=== PATIENT | female | born 1995 | race Two or more races ===

== ENCOUNTER → 2016-12-11 | Outpatient (CLI) | payer OTHER ==
[~2016-12-11] VITALS: Ht 170.2 cm; Wt 90.0 kg
[~2016-12-11] MED LIST: PRENTAB9 PO
[2016-12-11 20:41] VITALS: BP 141/92
[2016-12-11 21:20] VITALS: BP 133/81
[2016-12-11 21:51] VITALS: BP 135/74
[2016-12-11 22:03] LABS: ALT/SGPT 9 U/L (12-78); AST/SGOT 8 U/L (15-37); BILIRUBIN,TOTAL 0.3 MG/DL (0.2-1.0); CREATININE FOR GFR 0.52 MG/DL (0.55-1.02); GLOMERULAR FILTRATION RATE > 60.0 (>60); URIC ACID 3.6 MG/DL (2.6-6.0)
[2016-12-11 22:04] LABS: MEAN CORPUSCULAR HEMOGLOBIN 22.6 pg (27.0-33.0); MEAN CORPUSCULAR HGB CONC 30.3 g/dl (32.0-36.5); MEAN CORPUSCULAR VOLUME 74.8 fl (80.0-96.0); PLATELET COUNT, AUTOMATED 322 k/mm3 (150-450); RED CELL DISTRIBUTION WIDTH 16.4 % (11.5-14.5); WHITE BLOOD COUNT 14.6 K/mm3 (4.0-10.0)
[2016-12-11 22:21] VITALS: BP 122/71
[2016-12-11 22:34] LABS: EOSINOPHILS 2 % (0-5)
[2016-12-11 22:36] LABS: NUCLEATED RED BLOOD CELL 2 % (0-0)
[2016-12-11 22:37] LABS: ANISOCYTOSIS 2+; HYPOCHROMASIA 1+; MICROCYTOSIS 1+; POLYCHROMASIA 2+
== END ==
LOC: M LDO 20:23
PROVIDERS: ATTEND Advanced Practice Midwife
DX: O14.93 Unspecified pre-eclampsia, third trimester (principal); Z3A.32 32 weeks gestation of pregnancy

== ENCOUNTER → 2016-12-13 | Outpatient (CLI) | payer OTHER ==
[2016-12-13 13:50] LABS: BASO % 0.1 % (0.0-1.0); EOS # 0.1 K/mm3 (0.0-0.50); EOS % 0.9 % (0.0-3.0); LARGE UNSTAINED CELL # 0.2 K/mm3 (0.0-0.4); LARGE UNSTAINED CELL % 1.5 % (0.0-4.0); LYMPH # 2.7 K/mm3 (1.5-6.5); MEAN CORPUSCULAR HEMOGLOBIN 22.8 pg (27.0-33.0); MEAN CORPUSCULAR HGB CONC 29.8 g/dl (32.0-36.5); MEAN CORPUSCULAR VOLUME 76.7 fl (80.0-96.0); MONO # 0.8 K/mm3 (0.0-0.8); MONO % 5.3 % (0.0-5.0); NEUTROPHILS # 11.7 K/mm3 (1.8-7.7); NEUTROPHILS % 76.2 % (36.0-66.0); PLATELET COUNT, AUTOMATED 301 k/mm3 (150-450); RED CELL DISTRIBUTION WIDTH 16.7 % (11.5-14.5); WHITE BLOOD COUNT 15.3 K/mm3 (4.0-10.0)
== END ==
LOC: M SMT 08:24
PROVIDERS: ATTEND Advanced Practice Midwife
DX: O13.3 Gestational [pregnancy-induced] hypertension without significant proteinuria, third trimester (principal); Z3A.31 31 weeks gestation of pregnancy

== ENCOUNTER → 2016-12-27 | Outpatient (CLI) | payer OTHER ==
--- NOTE | 2016-12-27 17:03 | REP ---
OB ULTRASOUND: Real-time sonographic evaluation of the gravid uterus is performed and correlated with prior studies. There is a single living intrauterine gestation with estimated gestational age of 34 weeks 0 days. EDC 02/07/2017. Today's measurements indicate appropriate growth. BPD 88 mm = 35 weeks 3 days, at the 71st percentile. HC 322 mm = 36 weeks 3 days, at the 89th percentile. AC 321 mm = 36 weeks 0 days, at the 80th percentile. Femur length 70 mm = 36 weeks 1 days, at the 80th percentile. HC/AC ratio 1.00 within normal range. Estimated weight 2824 grams at the 85th percentile. Cervix is closed and measures 3.1 cm in length. heart rate 150 beats per minute. Amniotic fluid within normal limits. MAVIS is 9.6 within normal range of 8.1-24.8. Biophysical profile score is 6/8 with no points for breathing. SD ratio 2.21 is within normal range of 2.0-.3.0. RI 0.54, slightly below normal range of 0.59-0.75. The cerebellum, four chamber heart, stomach, three-vessel cord, kidneys, and bladder are visualized and are grossly unremarkable. spine is visualized and is grossly unremarkable. position is vertex. Placenta is posterior and fundal and grade 2 with no previa or abruption. There may be a nuchal cord. Signed by Nito Bailey MD 12/27/2016 05:08 P
== END ==
LOC: M LRY 13:52
PROVIDERS: ATTEND Advanced Practice Midwife
DX: O14.03 Mild to moderate pre-eclampsia, third trimester (principal); Z3A.36 36 weeks gestation of pregnancy

== ENCOUNTER 2017-01-01 12:17 | Outpatient (CLI) | payer OTHER ==
[~2017-01-01] VITALS: Ht 167.6 cm; Wt 92.0 kg
== END 2017-01-01 13:10 | disposition home or self-care (01) ==
LOC: M LDO 12:17
PROVIDERS: ATTEND Obstetrics & Gynecology
DX: O26.893 Other specified pregnancy related conditions, third trimester (principal); O14.93 Unspecified pre-eclampsia, third trimester; Z3A.34 34 weeks gestation of pregnancy; O24.419 Gestational diabetes mellitus in pregnancy, unspecified control

== ENCOUNTER 2017-01-04 09:10 | Outpatient (CLI) | payer OTHER ==
[~2017-01-04] VITALS: Ht 167.6 cm; Wt 90.0 kg
[~2017-01-04 09:10] MED LIST changes: -GLYB125TA PO; -IRON1TAB PO
[2017-01-04] MEDS ORDERED: IRON1TAB PO (09:22)
[2017-01-04] MEDS ORDERED: GLYB125TA PO (09:22)
[2017-01-24] MEDS ORDERED: COLA100C3 PO (09:50)
== END 2017-01-04 10:55 | disposition home or self-care (01) ==
LOC: M LDO 09:10
PROVIDERS: ATTEND Obstetrics & Gynecology
DX: O14.03 Mild to moderate pre-eclampsia, third trimester (principal); O24.419 Gestational diabetes mellitus in pregnancy, unspecified control; Z3A.34 34 weeks gestation of pregnancy

== ENCOUNTER → 2017-01-04 | Emergency (ER) | payer OTHER ==
[~2017-01-04] VITALS: Ht 170.2 cm; Wt 95.3 kg
[~2017-01-04] MED LIST changes: +GLYB125TA PO; +IRON1TAB PO
[2017-01-04 08:52] VITALS: BP 158/85
== END | disposition admitted as inpatient to this hospital (09) ==
LOC: M ED 09:14 → M LDO 09:14
DX: O16.4 Unspecified maternal hypertension, complicating childbirth (principal); Z3A.20 20 weeks gestation of pregnancy

== ENCOUNTER → 2017-01-05 | Outpatient (CLI) | payer OTHER ==
[~2017-01-05] MED LIST changes: +GLYB125TA PO; +IRON1TAB PO
--- NOTE | 2017-01-05 13:06 | REP ---
OB ULTRASOUND AND BIOPHYSICAL PROFILE: Real-time sonographic evaluation of the gravid uterus is performed and demonstrates a single living intrauterine gestation with estimated gestational age of 35 weeks 1 day, EDC 02/08/2017. heart rate 163 beats per minute. Amniotic fluid within normal limits, Amniotic fluid index (MAVIS) 12.3 within normal range of 7.8 - 24.9. Biophysical profile score 8 out of 8. S/d ratio 2.53 within normal range. Resistive index 0.60 within normal range. position vertex. Placenta posterior and fundal and grade 2 with no previa or abruption. IMPRESSION: Biophysical profile score 8 out of 8. Signed by Nito Bialey MD 01/05/2017 04:42 P
== END ==
LOC: M LRY 08:49
PROVIDERS: ATTEND Advanced Practice Midwife
DX: O14.03 Mild to moderate pre-eclampsia, third trimester (principal); Z3A.00 Weeks of gestation of pregnancy not specified

== ENCOUNTER 2017-01-11 16:08 | Outpatient (CLI) | payer OTHER ==
[~2017-01-11] VITALS: Ht 170.2 cm; Wt 93.0 kg
[2017-01-11 16:21] VITALS: BP 135/88
[2017-01-11 17:17] VITALS: BP 119/68
[2017-01-11 17:33] VITALS: BP 153/85
[2017-01-11 17:50] VITALS: BP 123/77
[2017-01-11 18:06] VITALS: BP 128/69
[2017-01-11 18:20] VITALS: BP 128/75
[2017-01-11 18:23] LABS: MEAN CORPUSCULAR HEMOGLOBIN 24.9 pg (27.0-33.0); MEAN CORPUSCULAR HGB CONC 31.1 g/dl (32.0-36.5); MEAN CORPUSCULAR VOLUME 79.8 fl (80.0-96.0); RED CELL DISTRIBUTION WIDTH 20.6 % (11.5-14.5); WHITE BLOOD COUNT 9.1 K/mm3 (4.0-10.0)
[2017-01-11 18:39] LABS: ALT/SGPT 12 U/L (12-78); AST/SGOT 15 U/L (15-37); BILIRUBIN,TOTAL 0.4 MG/DL (0.2-1.0); CREATININE FOR GFR 0.48 MG/DL (0.55-1.02); GLOMERULAR FILTRATION RATE > 60.0 (>60); URIC ACID 4.4 MG/DL (2.6-6.0)
== END 2017-01-11 20:13 | disposition home or self-care (01) ==
LOC: M LDO 16:08
PROVIDERS: ATTEND Specialist
DX: O14.93 Unspecified pre-eclampsia, third trimester (principal); Z3A.36 36 weeks gestation of pregnancy; Z79.899 Other long term (current) drug therapy

== ENCOUNTER → 2017-01-12 | Outpatient (REF) | payer OTHER | LOC: M LAB REF 15:10 | PROVIDERS: ATTEND Obstetrics & Gynecology | DX: Z34.83 Encounter for supervision of other normal pregnancy, third trimester (principal) ==

== ENCOUNTER → 2017-01-13 | Outpatient (CLI) | payer OTHER ==
--- NOTE | 2017-01-13 12:16 | REP ---
Obstetric ultrasound for biophysical profile. Amniotic fluid assessment: By the first ultrasound during this gestation the gestational age is 30 6 weeks 3 days. heart rate is hour and 28 beats per minute. There is a single intrauterine gestation in a vertex presentation. The placenta is right lateral. There is no previa or abruptio. The placenta demonstrates grade 2 three maturity. Subjectively amniotic fluid volume is normal. The amniotic fluid index is 9.2 (7.6 - 24.7). Biophysical profile: Breathing 2 Movement 2 Tone 2 Amniotic fluid volume 2 Total / Umbilical artery Doppler assessment: SD ratio 2.44. This is 1.82 - 2.82) Resistive index 0.261. 0.59 - 0.75). Diastolic flow velocity 13.6 cm/sec (normal). Signed by Nito Flowers MD 01/13/2017 12:07 P
== END ==
LOC: M LRY 08:55
PROVIDERS: ATTEND Advanced Practice Midwife
DX: O14.03 Mild to moderate pre-eclampsia, third trimester (principal); Z3A.36 36 weeks gestation of pregnancy

== ENCOUNTER 2017-01-20 19:44 | Outpatient (CLI) | payer OTHER ==
[~2017-01-20] VITALS: Ht 167.6 cm; Wt 94.0 kg
[2017-01-21] MEDS ORDERED: ACET50TA PO (07:07)
== END 2017-01-20 23:00 | disposition home or self-care (01) ==
LOC: M LDO 19:44
PROVIDERS: ATTEND Advanced Practice Midwife
DX: O47.1 False labor at or after 37 completed weeks of gestation (principal); Z3A.37 37 weeks gestation of pregnancy

== ENCOUNTER 2017-01-21 06:05 | Inpatient (IN) | payer OTHER ==
[~2017-01-21] VITALS: Ht 167.6 cm; Wt 94.0 kg
[2017-01-21] VITALS (39 sets, daily range): BP systolic 122–145; BP diastolic 67–94
[2017-01-21] MEDS ORDERED: ACET50TA PO (07:07)
[2017-01-21] MEDS ORDERED: miSOPROStol 50 MCG 1/2 TAB (S0191) PO SCH (07:15)
--- NOTE | 2017-01-21 07:56 | HPE ---
DATE OF ADMISSION: 01/21/2017 Helen is a 21-year-old 1, para 0 at 37-3/7 weeks gestation with an estimated date of confinement (EDC) of 02/08/2017 based on last normal menstrual period and confirmed by a second trimester ultrasound. She presents to labor and delivery today for induction of labor per consult with Dr. Efrain Maria due to preeclampsia and A1 gestational diabetes. She does report some regular contractions that have been consistent since about 1600 hours yesterday. She has had some positive bloody show. Denies leakage of fluid and the fetus has been active. She denies headache, blurred vision, epigastric pain and right upper quadrant discomfort. care was initiated at [facility] in the second trimester. course complicated by anemia, preeclampsia, A1 gestational diabetes. She underwent a pre-eclamptic workup on 12/11/2016, returned normal lab results but a 24-hour urine protein of 460.7 mg. PAST MEDICAL HISTORY: Essentially negative. SURGERIES: None. FAMILY HISTORY: Hypertension. SOCIAL HISTORY: She is single. However, the father of the baby is at bedside and supportive. She is a nonsmoker. Denies alcohol and drug use. No history of sexually transmitted infections and denies history of abuse - physical, sexual and emotional. ALLERGIES: CITRUS. CURRENT MEDICATIONS: - ferrous sulfate 325 mg twice a day - vitamin She had been taking glyburide 1.25 mg but had dizziness and visual disturbances and stopped taking that on 01/12/2017. OBJECTIVE: Temperature 99.2, pulse 99, respirations 18. Her blood pressure is 137/94. She is alert and oriented times three. She does not appear to be in any discomfort. heart rate is 145 with moderate variability, positive accelerations, no decelerations. She is jovany about every 3-5 minutes; they do palpate mild. Her abdomen is gravid, cephalic presentation. Estimated weight 3600 grams. Sterile vaginal exam: 1 cm dilated, 75% effaced, -2 station. Her membranes are intact, and there is positive bloody show. ASSESSMENT: Intrauterine at 37-3/7 weeks, heart rate category one, A1 gestational diabetes, preeclampsia. PLAN: Admit the patient to labor and delivery. Saline lock. Labs as ordered including repeat pre-eclamptic labs. Out of bed ad dianna. Consistent carbohydrate diet. Misoprostol 50 mcg by mouth every 4 hours for cervical ripening. I did review risks to induction with the patient including increased risk for section, failed induction, intolerance to labor. All of the patient's questions have been answered, and she does desire to proceed with induction.
[2017-01-21 07:58] LABS: MEAN CORPUSCULAR HGB CONC 30.9 g/dl (32.0-36.5); MEAN CORPUSCULAR VOLUME 81.1 fl (80.0-96.0); RED CELL DISTRIBUTION WIDTH 21.3 % (11.5-14.5); WHITE BLOOD COUNT 11.8 K/mm3 (4.0-10.0)
[2017-01-21 08:20] LABS: ALT/SGPT 12 U/L (12-78); AST/SGOT 17 U/L (15-37); BILIRUBIN,TOTAL 0.4 MG/DL (0.2-1.0); CREATININE FOR GFR 0.55 MG/DL (0.55-1.02); GLOMERULAR FILTRATION RATE > 60.0 (>60); URIC ACID 5.4 MG/DL (2.6-6.0)
[2017-01-21] MEDS ORDERED: LR 1,000 ML IV SCH (12:32)
[2017-01-21] MEDS ORDERED: OXYTOCIN 30 UNITS IN 0.9% NaCl 500ML IV BAG (J2590) As Ordered ONE (12:34)
[2017-01-21] MEDS ORDERED: OXYTOCIN DRIP 30 UNITS in APPROPRIATE DILUENT 1 EA IV SCH (12:45)
[2017-01-21 21:28] LABS: MEAN CORPUSCULAR HEMOGLOBIN 24.7 pg (27.0-33.0); MEAN CORPUSCULAR VOLUME 79.8 fl (80.0-96.0); RED CELL DISTRIBUTION WIDTH 21.2 % (11.5-14.5); WHITE BLOOD COUNT 12.8 K/mm3 (4.0-10.0)
[2017-01-21] MEDS ORDERED: FENTANYL/ROPIVACAINE/NACL CADD 250 ML EPIDURAL SCH (22:30)
[2017-01-21] MEDS ORDERED: NALOXONE INJ 0.4 MG/1 ML VIAL (J2310) IV PRN (22:30)
[2017-01-21] MEDS ORDERED: ePHEDrine SULFATE 25 MG/5 ML(5MG/ML) SYRINGE IV PRN (22:30)
[2017-01-21] MEDS ORDERED: EPIDURAL/PCA KEYS XX PRN (22:30)
[2017-01-21] MEDS ORDERED: diphenhydrAMINE INJ 50MG/ML VIAL (J1200) IV PRN (22:30)
[2017-01-21] MEDS ORDERED: REFRIGERATOR IV KEYS XX PRN (22:30)
[2017-01-21] MEDS ORDERED: EPIDURAL COMMENT XX SCH (22:30)
[2017-01-21] MEDS ORDERED: LACTATED RINGER'S 1000 ML IV PRN (22:30)
[2017-01-21] MEDS ORDERED: ONDANSETRON 4MG/2ML VIAL (J2405) IV PRN (22:30)
[2017-01-21] MEDS ORDERED: FENTANYL 2MCG/ML ROPIVACAINE 0.2% NACL 250 ML CADD As Ordered ONE (22:50)
[2017-01-22] VITALS (17 sets, daily range): BP systolic 100–133; BP diastolic 57–83
[2017-01-22 08:46] LABS: CORD GAS ABE A -2.6; CORD GAS O2 SAT A 31.1 %; CORD GAS PCO2 A 53.2 mmHg; CORD GAS PH A 7.29 UNITS; CORD GAS PO2 A 16.2 mmHg; CORD GAS SBC A 20.5 MEQ/L; CORD GAS TCO2 A 26.6 MEQ/L
[2017-01-22 08:47] LABS: CORD GAS ABE V -1.8; CORD GAS HCO3 V 24.2 MEQ/L; CORD GAS O2 SAT V 66.3 %; CORD GAS PCO2 V 45.1 mmHg; CORD GAS PH V 7.347 UNITS; CORD GAS PO2 V 24.8 mmHg; CORD GAS TCO2 V 25.6 MEQ/L
[2017-01-22] MEDS ORDERED: OXYTOCIN DRIP 30 UNITS in APPROPRIATE DILUENT 1 EA IV SCH (08:57)
[2017-01-22] MEDS ORDERED: RHOGAM 300 MCG (1500 IU) INJ (J2790) IM SCH (09:00)
[2017-01-22] MEDS ORDERED: MEASLES,MUMPS,RUBELLA VACCINE INJ (MMR-II) (90707) SC SCH (09:00)
[2017-01-22] MEDS ORDERED: ANUSOL HC CREAM 30GM TOP PRN (09:00)
[2017-01-22] MEDS ORDERED: METHYLERGONOVINE MALEATE 0.2 MG TAB PO PRN (09:00)
[2017-01-22] MEDS ORDERED: DOCUSATE SODIUM 100 MG CAP PO PRN (09:00)
[2017-01-22] MEDS ORDERED: DIBUCAINE 1% OINTMENT 30GM TOP PRN (09:00)
--- NOTE | 2017-01-22 09:13 | DN ---
DATE: 01/22/2017 Helen is a 21-year-old, 1, para 1-0-0-1, who was admitted to labor and delivery for induction of labor due to preeclampsia and A1 gestational diabetes. Misoprostol and IV Pitocin was utilized as well as assisted rupture of membranes to initiate labor. She did utilize an epidural for her labor coping. She progressed to full dilation at 0727. She pushed to a normal spontaneous vaginal delivery of a live female in occiput anterior (OA) position with restitution to right occiput transverse (ROT) position at 0831. There was a nuchal cord times two loose that was reduced manually at the time of delivery. Also noted to have a true knot in the cord. The shoulders delivered with gentle downward guidance and the corpus immediately followed. The was placed on the maternal abdomen crying and active. Her mouth and nares were bulb suctioned. The cord was clamped times two and cut by the father of the baby. Cord blood and cord gases were obtained. Arterial cord gas 7.290 with a base excess of -2.6. Venous cord pH 7.347 with a base excess of -1.8. Uterine hemostasis was achieved with IV Pitocin rapid infusion and uterine fundal massage. Estimated blood loss 350 mL. Perineum and vagina were inspected and noted to have a first degree midline laceration that was repaired with #3-0 Rapide in the usual fashion. The female weighed 3592 grams, 7 pounds 15 ounces, 8 and 9. Mom plans to bottle feed her daughter and the family have named her eBlia Medina. At the close of delivery, lap counts, needle counts and instrument counts were correct and verified.
[2017-01-22] MEDS: PRENATAL VITAMIN TAB PO SCH (11:15)
[2017-01-22] MEDS: IBUPROFEN 800 MG TAB PO PRN ×2 (14:03→22:06)
[2017-01-23 05:32] VITALS: BP 130/69
[2017-01-23] MEDS: ACETAMINOPHEN 500 MG TAB PO PRN ×2 (05:36→12:27)
[2017-01-23] MEDS: IBUPROFEN 800 MG TAB PO PRN ×2 (08:52→17:41)
[2017-01-23] MEDS: PRENATAL VITAMIN TAB PO SCH (08:52)
[2017-01-23 18:00] VITALS: BP 142/84
[2017-01-24] MEDS: IBUPROFEN 800 MG TAB PO PRN (01:33)
[2017-01-24 06:16] VITALS: BP 123/62
[2017-01-24] MEDS ORDERED: ACET50TA PO (09:48)
[2017-01-24] MEDS ORDERED: IBUP-1114 PO (09:49)
[2017-01-24] MEDS ORDERED: COLA100C PO (09:50)
== END 2017-01-24 10:15 | disposition home or self-care (01) | DRG 775 ==
LOC: M LDI 06:05 → M OBS 01-22 10:59
PROVIDERS: ADMIT Advanced Practice Midwife; ATTEND Advanced Practice Midwife
PROC: 3E033VJ Introduction of Other Hormone into Peripheral Vein, Percutaneous Approach (ICD-10-PCS; 2017-01-21)
PROC: 3E0DXGC Introduction of Other Therapeutic Substance into Mouth and Pharynx, External Approach (ICD-10-PCS; 2017-01-21)
PROC: 10907ZC Drainage of Amniotic Fluid, Therapeutic from Products of Conception, Via Natural or Artificial Opening (ICD-10-PCS; 2017-01-21)
PROC: 10E0XZZ Delivery of Products of Conception, External Approach (ICD-10-PCS; principal; 2017-01-22)
PROC: 0HQ9XZZ Repair Perineum Skin, External Approach (ICD-10-PCS; 2017-01-22)
DX: O14.94 Unspecified pre-eclampsia, complicating childbirth (principal); Z37.0 Single live birth; O24.425 Gestational diabetes mellitus in childbirth, controlled by oral hypoglycemic drugs; Z3A.37 37 weeks gestation of pregnancy; D64.9 Anemia, unspecified; O99.02 Anemia complicating childbirth; O69.2XX0 Labor and delivery complicated by other cord entanglement, with compression, not applicable or unspecified; O70.0 First degree perineal laceration during delivery